=== PATIENT | male | born 1980 | race Caucasian/White ===

== ENCOUNTER 2019-09-08 07:54 | Emergency (ER) | payer OTHER ==
[~2019-09-08] VITALS: Ht 180.3 cm; Wt 93.0 kg
[2019-09-08 08:03] VITALS: Ht 180.3 cm; Wt 93.0 kg
[2019-09-08 09:06] VITALS: BP 153/95
== END 2019-09-08 09:06 | disposition home or self-care (01) ==
LOC: ED 07:54
DX: J02.8 Acute pharyngitis due to other specified organisms (principal); Z20.828 Contact with and (suspected) exposure to other viral communicable diseases
CPT/HCPCS: Q0092